=== PATIENT | female | born 2000 | race Two or more races ===

== ENCOUNTER 2023-01-30 11:59 | Emergency (ER) | payer OTHER ==
[~2023-01-30] VITALS: Ht 160 cm; Wt 62.1 kg
[~2023-01-30 11:59] MED LIST: ACETAMINOPHEN650 M2 PO; PRENA1 TRUE CO1 EACH PO
[2023-01-30] MEDS ORDERED: ONDANSETRON ODT8 MG PO (19:22)
== END 2023-01-30 19:46 | disposition home or self-care (01) ==
LOC: ER 11:59
DX: O26.891 Other specified pregnancy related conditions, first trimester (principal); O43.891 Other placental disorders, first trimester; Z3A.11 11 weeks gestation of pregnancy; R10.2 Pelvic and perineal pain; Z20.822 Contact with and (suspected) exposure to COVID-19

== ENCOUNTER 2023-03-08 11:03 | Outpatient (CLI) | payer OTHER ==
[~2023-03-08 11:03] MED LIST changes: +ONDANSETRON ODT8 MG PO
== END 2023-03-08 13:17 | disposition home or self-care (01) ==
LOC: PRENATAL 11:03
PROVIDERS: ATTEND Obstetrics & Gynecology Maternal & Fetal Medicine
DX: O26.849 Uterine size-date discrepancy, unspecified trimester (principal); O28.3 Abnormal ultrasonic finding on antenatal screening of mother; Z3A.16 16 weeks gestation of pregnancy

== ENCOUNTER 2023-04-05 11:36 | Outpatient (CLI) | payer OTHER | END 2023-04-05 13:09 | disposition home or self-care (01) | LOC: PRENATAL 11:36 | PROVIDERS: ATTEND Obstetrics & Gynecology Maternal & Fetal Medicine | DX: O35.9XX0 Maternal care for (suspected) fetal abnormality and damage, unspecified, not applicable or unspecified (principal); O44.00 Complete placenta previa NOS or without hemorrhage, unspecified trimester; O28.3 Abnormal ultrasonic finding on antenatal screening of mother; Z3A.20 20 weeks gestation of pregnancy ==